=== PATIENT | female | born 1980 | race Caucasian/White ===

== ENCOUNTER 2017-08-19 09:03 | Observation (INO) ==
[2017-08-19] MEDS ORDERED: SODIUM CHLORIDE 0.9% 1,000 ML IV STA (09:36)
[2017-08-19] MEDS ORDERED: ONDANSETRON 4 MG/2 ML VIAL IV STA ×2 (09:36→12:40)
[2017-08-19] MEDS ORDERED: HYDROmorphone 2 MG/1 ML VIAL IV STA ×2 (09:36→11:40)
[2017-08-19] MEDS ORDERED: KETOROLAC 30 MG/1 ML VIAL IV STA (09:36)
[2017-08-19] MEDS ORDERED: KETOROLAC 30 MG/1 ML VIAL ONE (09:45)
[2017-08-19] MEDS ORDERED: ONDANSETRON 4 MG/2 ML VIAL ONE ×2 (09:45→12:40)
[2017-08-19] MEDS ORDERED: HYDROmorphone 2 MG/1 ML VIAL ONE (09:45)
[2017-08-19 09:55] LABS: Apearance,Urine CLEAR (Clear); Bacteria,Urine Occasional /HPF (Few); Bilirubin,Urine Negative (Negative); Blood, Urine Small mg/dL (Negative); Calcium Oxalate Crystals,Urine Occasional /HPF (Few); Glucose,Urine (UA) Negative (Negative); Ketones,Urine Negative (Negative); Mucus,Urine Many /LPF (Occasional); Nitrite,Urine Positive (Negative); Protein,Urine 30 MG/DL; RBC,Urine 33 /HPF (0-4); Squamous Epithelial Cell,Urine Occasional /HPF (0-10); Urine Color Amber (Yellow); Urine Specific Gravity 1.024 (1.001-1.035); WBC,Urine 10 /HPF (0-6)
[2017-08-19] MEDS ORDERED: cefTRIAXone 1,000 MG in SODIUM CHLORIDE 0.9% 100 ML IV STA (11:49)
[2017-08-19 12:32] LABS: Alanine Aminotransferase 18 U/L (13-56); Albumin 3.8 G/DL (3.4-5.0); Alkaline Phosphatase 59 U/L (45-117); Aspartate Amino Transferase 12 U/L (0-37); Bilirubin,Total < 0.39 MG/DL (0.2-1.0); Blood Urea Nitrogen 15 MG/DL (7-18); Calcium 8.5 MG/DL (8.5-10.1); Glucose 98 MG/DL (74-106); Osmolality,Calculated 279.4 MOS/KG (273-304); Potassium 3.9 MMOL/L (3.5-5.1); Sodium 140 MMOL/L (136-145); Total Protein 6.6 G/DL (6.4-8.3)
[2017-08-19] MEDS ORDERED: cefTRIAXone 1,000 MG VIAL ONE (12:33)
[2017-08-19 12:40] LABS: Basophils # 0.1 10*3/uL (0.0-0.2); Basophils % 0.5 % (0.0-0.8); Eosinophils # 0.1 10*3/uL (0.0-0.87); Eosinophils % 0.9 % (0.00-10.9); Hematocrit 38.3 VOL% (35.7-47.0); Hemoglobin 12.9 GM/DL (12.0-16.0); Immature Granulocytes % 0.4 %; Immature Granulocytes Absolute 0.05 #; Lymphocytes # 1.6 10*3/uL (1.4-4.0); Mean Corpuscular HGB Conc 33.7 GM/DL (32-36); Mean Corpuscular Hemoglobin 32 PG (27-34); Mean Corpuscular Volume 93.9 FL (87-102); Mean Platelet Volume 10.8 FL (9.6-12.0); Monocytes % 7.8 % (1.7-12.7); Neutrophils # 9.6 10*3/uL (1.4-7.4); Neutrophils % 77.4 % (38.7-73.9); Platelet Count 287 T/CUMM (130-400); Red Blood Count 4.08 MC/CUMM (3.8-5.5); Red Cell Distribution Width 12.8 % (9.3-17.3); White Blood Count 12.3 T/CUMM (4-12)
[2017-08-19] MEDS ORDERED: ALBUTEROL 2.5 MG/3 ML NEB RESP TX PRN (16:10)
[2017-08-19] MEDS ORDERED: cefTRIAXone 1,000 MG in SYRINGE 1 EACH IV ONE (16:10)
[2017-08-19] MEDS ORDERED: ONDANSETRON 4 MG/2 ML VIAL IV PRN (16:10)
[2017-08-19] MEDS ORDERED: diphenhydrAMINE 50 MG/1 ML VIAL IV PRN (16:10)
[2017-08-19] MEDS: DEXTROSE 5% NACL 0.45% 1,000 ML IV SCH (17:00)
[2017-08-19] MEDS: FAMOTIDINE IV SCH (17:02)
[2017-08-19] MEDS: TAMSULOSIN 0.4 MG CAPSULE PO SCH (17:02)
[2017-08-19] MEDS: HYDROmorphone 2 MG/1 ML VIAL IV PRN ×2 (17:29→22:34)
[2017-08-19] MEDS: KETOROLAC 15 MG/1 ML VIAL IV SCH (19:12)
[2017-08-19] MEDS: PROMETHAZINE 25 MG/1 ML VIAL IM PRN (22:30)
[2017-08-20] MEDS: DEXTROSE 5% NACL 0.45% 1,000 ML IV SCH ×2 (01:36→10:46)
[2017-08-20] MEDS: HYDROmorphone 2 MG/1 ML VIAL IV PRN ×3 (01:36→10:46)
[2017-08-20] MEDS: KETOROLAC 15 MG/1 ML VIAL IV SCH (01:36)
[2017-08-20 07:25] LABS: Basophils % 0.5 % (0.0-0.8); Eosinophils # 0.2 10*3/uL (0.0-0.87); Hematocrit 29.8 VOL% (35.7-47.0); Immature Granulocytes % 0.3 %; Immature Granulocytes Absolute 0.02 #; Lymphocytes # 2.2 10*3/uL (1.4-4.0); Lymphocytes % 33.6 % (21.3-54.2); Mean Corpuscular HGB Conc 34.2 GM/DL (32-36); Mean Corpuscular Hemoglobin 32 PG (27-34); Mean Corpuscular Volume 94.6 FL (87-102); Mean Platelet Volume 10.1 FL (9.6-12.0); Monocytes # 0.5 10*3/uL (0.11-0.8); Monocytes % 7.9 % (1.7-12.7); Neutrophils # 3.6 10*3/uL (1.4-7.4); Neutrophils % 54.7 % (38.7-73.9); Red Cell Distribution Width 12.8 % (9.3-17.3)
[2017-08-20 07:34] LABS: Hemoglobin 10.2 GM/DL (12.0-16.0); Platelet Count 202 T/CUMM (130-400); Red Blood Count 3.15 MC/CUMM (3.8-5.5); White Blood Count 6.6 T/CUMM (4-12)
[2017-08-20 07:38] LABS: Osmolality,Calculated 278.3 MOS/KG (273-304); Potassium 3.9 MMOL/L (3.5-5.1)
[2017-08-20] MEDS: TAMSULOSIN 0.4 MG CAPSULE PO SCH (10:34)
[2017-08-20] MEDS: FAMOTIDINE IV SCH ×2 (10:35→22:00)
[2017-08-20] MEDS: PROMETHAZINE 25 MG/1 ML VIAL IM PRN ×2 (10:35→22:24)
[2017-08-20] MEDS ORDERED: cefTRIAXone 1,000 MG VIAL ONE (13:39)
[2017-08-20] MEDS ORDERED: cefTRIAXone 1,000 MG in SYRINGE 1 EACH IV ONE (14:00)
[2017-08-20] MEDS ORDERED: PROPOFOL 200 MG/20 ML VIAL IV ONE (14:38)
[2017-08-20] MEDS ORDERED: ROCURONIUM 100 MG/10 ML VIAL IV ONE (14:38)
[2017-08-20] MEDS ORDERED: MIDAZOLAM 2 MG/2 ML VIAL ONE (14:38)
[2017-08-20] MEDS ORDERED: fentaNYL 100 MCG/2 ML VIAL ONE (14:38)
[2017-08-20] MEDS ORDERED: ePHEDrine 50 MG/ML AMP ONE (14:39)
[2017-08-20] MEDS ORDERED: ONDANSETRON 4 MG/2 ML VIAL ONE (14:39)
[2017-08-20] MEDS ORDERED: DEXAMETHASONE 4 MG/1 ML VIAL ONE (14:39)
[2017-08-20] MEDS ORDERED: PROMETHAZINE 25 MG/1 ML VIAL ONE (14:39)
[2017-08-20] MEDS ORDERED: PHENYLEPHRINE 50 MG/5 ML VIAL ONE (14:40)
[2017-08-20] MEDS ORDERED: SODIUM CHLORIDE 0.9% 250 ML IV ONE (14:40)
[2017-08-20] MEDS ORDERED: GLYCOPYRROLATE 0.4 MG/2 ML VIAL ONE (14:40)
[2017-08-20] MEDS: MORPHINE 2 MG/1 ML SYRINGE IV PRN ×2 (17:53→22:24)
[2017-08-20] MEDS: LACTATED RINGERS 1,000 ML IV SCH (17:57)
[2017-08-21] MEDS: LACTATED RINGERS 1,000 ML IV SCH (02:21)
[2017-08-21] MEDS ORDERED: KETOROLAC 30 MG/1 ML VIAL IV ONE (08:00)
[2017-08-21] MEDS ORDERED: LISDEXAMFETAMINE DIMESYLATE 70 MG PO SCH (09:00)
[2017-08-21] MEDS: TAMSULOSIN 0.4 MG CAPSULE PO SCH (09:21)
[2017-08-21] MEDS: FAMOTIDINE IV SCH (09:21)
[2017-08-21] MEDS: PROMETHAZINE 25 MG/1 ML VIAL IM PRN (09:34)
[2017-08-21] MEDS: MORPHINE 2 MG/1 ML SYRINGE IV PRN (10:43)
[2017-08-21 12:06] VITALS: BP 99/54
[2017-08-21] MEDS ORDERED: ZALEPLON 5 MG CAPSULE PO SCH (21:00)
[2017-08-21] MEDS ORDERED: NORETHINDRONE 0.35 MG PO SCH (21:00)
[2017-08-21] MEDS ORDERED: MONTELUKAST 10 MG TABLET PO SCH (21:00)
[2017-08-26 22:04] LABS: Stone Source Passed Stone
== END 2017-08-21 12:51 | disposition home or self-care (01) ==
LOC: N.EDINP 09:03 → N.ED 09:03 → N.2E 16:00
PROVIDERS: ADMIT Surgery; ATTEND Surgery

== ENCOUNTER 2017-11-19 11:51 | Observation (INO) ==
[2017-11-19] MEDS ORDERED: ONDANSETRON 4 MG/2 ML VIAL ONE (12:13)
[2017-11-19] MEDS ORDERED: KETOROLAC 30 MG/1 ML VIAL ONE (12:14)
[2017-11-19] MEDS ORDERED: HYDROmorphone 2 MG/1 ML VIAL ONE ×2 (12:14→16:04)
[2017-11-19] MEDS ORDERED: SODIUM CHLORIDE 0.9% 1,000 ML IV STA ×2 (12:20→16:18)
[2017-11-19] MEDS ORDERED: ONDANSETRON 4 MG/2 ML VIAL IV STA (12:20)
[2017-11-19] MEDS ORDERED: KETOROLAC 30 MG/1 ML VIAL IV STA (12:20)
[2017-11-19] MEDS ORDERED: HYDROmorphone 2 MG/1 ML VIAL IV STA ×2 (12:20→16:35)
[2017-11-19 13:47] LABS: Apearance,Urine CLOUDY (Clear); Bacteria,Urine Many /HPF (Few); Bilirubin,Urine Negative (Negative); Blood, Urine Large mg/dL (Negative); Glucose,Urine (UA) Negative (Negative); Ketones,Urine 20 mg/dL (Negative); Nitrite,Urine Positive (Negative); Protein,Urine 100 MG/DL; RBC,Urine 1934 /HPF (0-4); Squamous Epithelial Cell,Urine Occasional /HPF (0-10); Transitional Epi Cells,Urine Few /HPF (<1); Urine Color Amber (Yellow); Urine Specific Gravity 1.024 (1.001-1.035); Urine Urobilinogen < 2.0 EU/DL (0.2-1.0); WBC,Urine 129 /HPF (0-6)
[2017-11-19] MEDS ORDERED: cefTRIAXone 1,000 MG in SODIUM CHLORIDE 0.9% 100 ML IV STA (15:18)
[2017-11-19] MEDS ORDERED: cefTRIAXone 1,000 MG VIAL ONE (15:59)
[2017-11-19 16:44] LABS: Basophils % 0.2 % (0.0-0.8); Eosinophils # 0.1 10*3/uL (0.0-0.87); Eosinophils % 0.6 % (0.00-10.9); Hematocrit 36.9 VOL% (35.7-47.0); Hemoglobin 12.5 GM/DL (12.0-16.0); Immature Granulocytes % 0.5 %; Immature Granulocytes Absolute 0.06 #; Lymphocytes # 1.2 10*3/uL (1.4-4.0); Lymphocytes % 9.5 % (21.3-54.2); Mean Corpuscular HGB Conc 33.9 GM/DL (32-36); Mean Corpuscular Hemoglobin 32 PG (27-34); Mean Corpuscular Volume 94.4 FL (87-102); Mean Platelet Volume 10.7 FL (9.6-12.0); Monocytes # 0.7 10*3/uL (0.11-0.8); Monocytes % 5.7 % (1.7-12.7); Neutrophils # 10.3 10*3/uL (1.4-7.4); Neutrophils % 83.5 % (38.7-73.9); Platelet Count 310 T/CUMM (130-400); Red Blood Count 3.91 MC/CUMM (3.8-5.5); Red Cell Distribution Width 13.4 % (9.3-17.3); White Blood Count 12.4 T/CUMM (4-12)
[2017-11-19 16:54] LABS: Alanine Aminotransferase 19 U/L (13-56); Albumin 3.7 G/DL (3.4-5.0); Alkaline Phosphatase 67 U/L (45-117); Aspartate Amino Transferase 18 U/L (0-37); Bilirubin,Total < 0.39 MG/DL (0.2-1.0); Blood Urea Nitrogen 21 MG/DL (7-18); Calcium 8.9 MG/DL (8.5-10.1); Glucose 106 MG/DL (74-106); Osmolality,Calculated 281.4 MOS/KG (273-304); Potassium 4.3 MMOL/L (3.5-5.1); Sodium 140 MMOL/L (136-145); Total Protein 6.7 G/DL (6.4-8.3)
[2017-11-19] MEDS ORDERED: ALBUTEROL 1.25 MG/3 ML NEB RESP TX PRN (17:14)
[2017-11-19] MEDS ORDERED: MORPHINE 2 MG/1 ML SYRINGE IV PRN (17:14)
[2017-11-19] MEDS: PROMETHAZINE 25 MG/1 ML VIAL IM PRN (18:20)
[2017-11-19] MEDS: SODIUM CHLORIDE 0.9% 1,000 ML IV SCH (18:29)
[2017-11-19] MEDS: cefTRIAXone 1,000 MG in SYRINGE 1 EACH IV SCH (19:02)
[2017-11-19] MEDS ORDERED: HYDROmorphone 2 MG/1 ML VIAL IV PRN (20:53)
[2017-11-19] MEDS ORDERED: NORETHINDRONE 0.35 MG PO SCH (21:00)
[2017-11-19] MEDS: HYDROmorphone 2 MG/1 ML VIAL IV PRN (21:03)
[2017-11-19] MEDS: DOCUSATE SODIUM 100 MG CAPSULE PO SCH (21:05)
[2017-11-19] MEDS: TAMSULOSIN 0.4 MG CAPSULE PO SCH (21:05)
[2017-11-19] MEDS: MONTELUKAST 10 MG TABLET PO SCH (21:05)
[2017-11-19] MEDS: ONDANSETRON 4 MG/2 ML VIAL IV PRN (21:07)
[2017-11-20] MEDS: PROMETHAZINE 25 MG/1 ML VIAL IM PRN ×3 (00:10→13:08)
[2017-11-20] MEDS: HYDROmorphone 2 MG/1 ML VIAL IV PRN ×7 (00:11→21:17)
[2017-11-20] MEDS: SODIUM CHLORIDE 0.9% 1,000 ML IV SCH ×4 (00:19→23:29)
[2017-11-20] MEDS: ONDANSETRON 4 MG/2 ML VIAL IV PRN (03:52)
[2017-11-20] MEDS ORDERED: DIAZEPAM 5 MG TABLET PO ONE (07:25)
[2017-11-20] MEDS ORDERED: LIDOCAINE 2% TOP JELLY 20 ML VIAL INTRAURETH ONE (08:18)
[2017-11-20] MEDS ORDERED: Lisdexamfetamine Dimesylate [Vyvanse] 70 MG PO SCH (09:00)
[2017-11-20] MEDS ORDERED: SCOPOLAMINE 1.5 MG PATCH TRANSDERM ONE (09:13)
[2017-11-20] MEDS ORDERED: GENTAMICIN 80 MG/2 ML VIAL ONE (09:48)
[2017-11-20] MEDS ORDERED: fentaNYL 100 MCG/2 ML VIAL ONE (10:15)
[2017-11-20] MEDS ORDERED: MIDAZOLAM 2 MG/2 ML VIAL ONE (10:15)
[2017-11-20] MEDS ORDERED: PROPOFOL 200 MG/20 ML VIAL IV ONE (10:15)
[2017-11-20] MEDS ORDERED: SEVOFLURANE 1 UNIT/15 MINUTE INH ONE (10:15)
[2017-11-20] MEDS ORDERED: DEXAMETHASONE 10 MG/1 ML VIAL ONE (10:16)
[2017-11-20] MEDS ORDERED: ONDANSETRON 4 MG/2 ML VIAL ONE (10:16)
[2017-11-20] MEDS ORDERED: ACETAMINOPHEN 1,000 MG/100 ML VIAL IV ONE (10:16)
[2017-11-20] MEDS ORDERED: SUCCINYLCHOLINE 200 MG/10 ML VIAL ONE (10:16)
[2017-11-20] MEDS ORDERED: ePHEDrine 50 MG/ML AMP ONE (10:16)
[2017-11-20] MEDS ORDERED: GENTAMICIN INJ 80 MG in PREMIX 1 EACH IV ONE (10:30)
[2017-11-20] MEDS: DOCUSATE SODIUM 100 MG CAPSULE PO SCH ×2 (11:34→21:08)
[2017-11-20] MEDS: TAMSULOSIN 0.4 MG CAPSULE PO SCH ×2 (11:34→21:14)
[2017-11-20] MEDS: FAMOTIDINE 20 MG TABLET PO SCH (11:34)
[2017-11-20] MEDS: cefTRIAXone 1,000 MG in SYRINGE 1 EACH IV SCH (18:02)
[2017-11-20] MEDS: MONTELUKAST 10 MG TABLET PO SCH (21:08)
[2017-11-20] MEDS: oxyCODONE/ACETAMINOPHEN 5-325 MG TABLET PO PRN (23:27)
[2017-11-21] MEDS: HYDROmorphone 2 MG/1 ML VIAL IV PRN ×3 (00:02→08:07)
[2017-11-21] MEDS: PROMETHAZINE 25 MG/1 ML VIAL IM PRN ×2 (03:56→09:50)
[2017-11-21] MEDS: oxyCODONE/ACETAMINOPHEN 5-325 MG TABLET PO PRN ×2 (04:04→09:42)
[2017-11-21] MEDS: SODIUM CHLORIDE 0.9% 1,000 ML IV SCH ×2 (06:22→10:11)
[2017-11-21] MEDS: DOCUSATE SODIUM 100 MG CAPSULE PO SCH (08:10)
[2017-11-21] MEDS: TAMSULOSIN 0.4 MG CAPSULE PO SCH (08:10)
[2017-11-21] MEDS: FAMOTIDINE 20 MG TABLET PO SCH (08:10)
[2017-11-21 14:46] VITALS: BP 98/56
== END 2017-11-21 12:35 | disposition home or self-care (01) ==
LOC: N.EDINP 11:51 → N.ED 11:51 → N.EDINP 16:45 → N.4E 17:13
PROVIDERS: ADMIT Surgery; ATTEND Surgery

== ENCOUNTER 2018-04-06 10:10 | Inpatient (IN) ==
[2018-04-08 11:08] VITALS: BP 134/81
== END 2018-04-08 15:15 | disposition home or self-care (01) | DRG 694 ==
LOC: N.EDINP 10:10 → N.ED 10:10 → N.5E 13:51
PROVIDERS: ADMIT Surgery; ATTEND Surgery

== ENCOUNTER 2018-08-29 12:45 | Inpatient (IN) ==
[2018-08-29 13:52] LABS: Lactic Acid 2.3 MMOL/L (0.4-2.0)
[2018-08-29] MEDS ORDERED: ACETAMINOPHEN 500 MG TABLET PO STA (14:41)
[2018-08-29] MEDS ORDERED: SODIUM CHLORIDE 0.9% 500 ML IV STA (14:47)
[2018-08-29] MEDS ORDERED: PIPERACILLIN/TAZOBACTAM 3,375 MG in SODIUM CHLORIDE 0.9% 100 ML IV STA (14:48)
[2018-08-29] MEDS ORDERED: ACETAMINOPHEN 500 MG TABLET ONE (14:48)
[2018-08-29] MEDS ORDERED: ONDANSETRON 4 MG/2 ML VIAL IV STA (14:49)
[2018-08-29] MEDS ORDERED: HYDROmorphone 2 MG/1 ML VIAL IV STA (14:52)
[2018-08-29] MEDS ORDERED: ONDANSETRON 4 MG/2 ML VIAL ONE (14:55)
[2018-08-29] MEDS ORDERED: HYDROmorphone 2 MG/1 ML VIAL ONE ×2 (14:55→18:25)
[2018-08-29 15:01] LABS: Basophils % 0.2 % (0.0-0.8); Eosinophils # 0.2 10*3/uL (0.0-0.87); Eosinophils % 1.7 % (0.00-10.9); Hemoglobin 12.2 GM/DL (12.0-16.0); Immature Granulocytes % 0.7 %; Immature Granulocytes Absolute 0.09 #; Lymphocytes # 0.6 10*3/uL (1.4-4.0); Lymphocytes % 4.6 % (21.3-54.2); Mean Corpuscular HGB Conc 33.9 GM/DL (32-36); Mean Corpuscular Hemoglobin 32 PG (27-34); Mean Corpuscular Volume 94.7 FL (87-102); Mean Platelet Volume 10.6 FL (9.6-12.0); Monocytes # 0.6 10*3/uL (0.11-0.8); Monocytes % 4.4 % (1.7-12.7); Neutrophils # 10.9 10*3/uL (1.4-7.4); Neutrophils % 88.4 % (38.7-73.9); Platelet Count 210 T/CUMM (130-400); Red Cell Distribution Width 12.9 % (9.3-17.3); White Blood Count 12.4 T/CUMM (4-12)
[2018-08-29 15:05] LABS: Apearance,Urine CLOUDY (Clear); Bacteria,Urine Occasional /HPF (Few); Bilirubin,Urine Negative (Negative); Blood, Urine Moderate mg/dL (Negative); Glucose,Urine (UA) Negative (Negative); Ketones,Urine Negative (Negative); Mucus,Urine Occasional /LPF (Occasional); Nitrite,Urine Negative (Negative); Protein,Urine 100 MG/DL; RBC,Urine 66 /HPF (0-4); Squamous Epithelial Cell,Urine Few /HPF (0-10); Urine Color Yellow (Yellow); Urine Specific Gravity 1.016 (1.001-1.035); Urine Urobilinogen < 2.0 EU/DL (0.2-1.0); WBC,Urine 130 /HPF (0-6)
[2018-08-29 15:28] LABS: Alanine Aminotransferase 26 U/L (13-56); Alkaline Phosphatase 101 U/L (45-117); Aspartate Amino Transferase 21 U/L (0-37); Bilirubin,Total < 0.39 MG/DL (0.2-1.0); Blood Urea Nitrogen 24 MG/DL (7-18); Calcium 9.1 MG/DL (8.5-10.1); Glucose 99 MG/DL (74-106); Osmolality,Calculated 273.1 MOS/KG (273-304); Sodium 135 MMOL/L (136-145); Total Protein 7.2 G/DL (6.4-8.3)
[2018-08-29] MEDS ORDERED: ACETAMINOPHEN 325 MG TABLET PO PRN (17:18)
[2018-08-29] MEDS ORDERED: SODIUM CHLORIDE 0.9% 1,000 ML IV ONE (17:23)
[2018-08-29] MEDS ORDERED: LACTATED RINGERS 1,000 ML IV SCH (17:30)
[2018-08-29] MEDS ORDERED: POTASSIUM CHLORIDE 20 MEQ/15 ML UDCUP PER TUBE PRN (17:56)
[2018-08-29] MEDS ORDERED: HYDROmorphone 2 MG/1 ML VIAL IV PRN (17:58)
[2018-08-29 19:02] LABS: Lactic Acid 2.3 MMOL/L (0.4-2.0)
[2018-08-29] MEDS: ONDANSETRON 4 MG/2 ML VIAL IV PRN (19:20)
[2018-08-29] MEDS: SODIUM CHLORIDE 0.9% 1,000 ML IV SCH (19:20)
[2018-08-29] MEDS: POTASSIUM CHLORIDE RIDER 10 MEQ in PREMIX 1 EACH IV PRN ×2 (19:24→23:17)
[2018-08-29] MEDS ORDERED: INFLUENZA VIRUS VACCINE 0.5 ML SYRINGE IM ONE (19:30)
[2018-08-29] MEDS: DOCUSATE SODIUM 100 MG CAPSULE PO PRN (19:34)
[2018-08-29] MEDS: HYDROmorphone 2 MG/1 ML VIAL IV PRN (22:29)
[2018-08-30] MEDS: POTASSIUM CHLORIDE RIDER 10 MEQ in PREMIX 1 EACH IV PRN ×3 (00:36→02:45)
[2018-08-30] MEDS: PIPERACILLIN/TAZOBACTAM 3,375 MG in SODIUM CHLORIDE 0.9% 100 ML IV SCH ×2 (00:36→10:45)
[2018-08-30] MEDS: ONDANSETRON 4 MG/2 ML VIAL IV PRN ×2 (02:51→06:39)
[2018-08-30] MEDS: HYDROmorphone 2 MG/1 ML VIAL IV PRN ×4 (02:51→23:30)
[2018-08-30 05:42] LABS: Basophils % 0.3 % (0.0-0.8); Eosinophils # 0.2 10*3/uL (0.0-0.87); Eosinophils % 3.9 % (0.00-10.9); Hematocrit 31.7 VOL% (35.7-47.0); Hemoglobin 10.5 GM/DL (12.0-16.0); Immature Granulocytes % 0.8 %; Immature Granulocytes Absolute 0.05 #; Lymphocytes # 0.6 10*3/uL (1.4-4.0); Mean Corpuscular HGB Conc 33.1 GM/DL (32-36); Mean Corpuscular Hemoglobin 31 PG (27-34); Mean Corpuscular Volume 94.1 FL (87-102); Mean Platelet Volume 10.5 FL (9.6-12.0); Monocytes # 0.5 10*3/uL (0.11-0.8); Monocytes % 8.9 % (1.7-12.7); Neutrophils # 4.6 10*3/uL (1.4-7.4); Neutrophils % 76.1 % (38.7-73.9); Platelet Count 158 T/CUMM (130-400); Red Blood Count 3.37 MC/CUMM (3.8-5.5); Red Cell Distribution Width 12.9 % (9.3-17.3); White Blood Count 6.1 T/CUMM (4-12)
[2018-08-30 06:05] LABS: Hypochromasia Slight; Microcytosis Slight; Platelet Estimate Adequate
[2018-08-30 06:31] LABS: Alanine Aminotransferase 35 U/L (13-56); Albumin 2.1 G/DL (3.4-5.0); Alkaline Phosphatase 83 U/L (45-117); Aspartate Amino Transferase 29 U/L (0-37); Bilirubin,Total < 0.39 MG/DL (0.2-1.0); Blood Urea Nitrogen 16 MG/DL (7-18); Calcium 7.7 MG/DL (8.5-10.1); Cholesterol 111 MG/DL (50-200); Glucose 112 MG/DL (74-106); HDL Cholesterol < 10 MG/DL (40-60); Osmolality,Calculated 274.8 MOS/KG (273-304); Potassium 3.3 MMOL/L (3.5-5.1); Sodium 137 MMOL/L (136-145); Thyroid Stimulating Hormone 0.986 uIU/ml (0.358-3.74); Total Protein 5.6 G/DL (6.4-8.3); Triglycerides 337 MG/DL (2-150); VLDL CHOLESTEROL 67.4 MG/DL
[2018-08-30] MEDS ORDERED: SODIUM CHLORIDE 0.9% 1,000 ML IV ONE (07:32)
[2018-08-30] MEDS ORDERED: oxyCODONE/ACETAMINOPHEN 5-325 MG TABLET PO PRN (08:30)
[2018-08-30] MEDS: HYDROmorphone 2 MG/1 ML VIAL IV SCH ×2 (09:43→10:26)
[2018-08-30] MEDS: PANTOPRAZOLE 40 MG TABLET PO SCH (09:44)
[2018-08-30] MEDS: SODIUM CHLORIDE 0.9% 1,000 ML IV SCH ×3 (10:27→23:00)
[2018-08-30] MEDS ORDERED: TAMSULOSIN 0.4 MG CAPSULE PO PRN (11:18)
[2018-08-30] MEDS ORDERED: ALBUTEROL 2.5 MG/3 ML NEB RESP TX PRN (11:18)
[2018-08-30] MEDS ORDERED: OXYBUTYNIN 5 MG TABLET PO PRN (11:18)
[2018-08-30] MEDS ORDERED: ZALEPLON 5 MG CAPSULE PO PRN (12:30)
[2018-08-30] MEDS ORDERED: cefTRIAXone 1,000 MG in SYRINGE 1 EACH IV SCH (13:00)
[2018-08-30] MEDS ORDERED: cefTRIAXone 1,000 MG VIAL ONE (13:53)
[2018-08-30] MEDS ORDERED: PROPOFOL 200 MG/20 ML VIAL IV ONE (14:25)
[2018-08-30] MEDS ORDERED: MIDAZOLAM 2 MG/2 ML VIAL ONE (14:25)
[2018-08-30] MEDS ORDERED: PHENYLEPHRINE 1 MG/10 ML SYRINGE IV ONE (14:26)
[2018-08-30] MEDS ORDERED: DEXAMETHASONE 10 MG/1 ML VIAL ONE (14:26)
[2018-08-30] MEDS ORDERED: ONDANSETRON 4 MG/2 ML VIAL ONE (14:26)
[2018-08-30] MEDS ORDERED: fentaNYL 100 MCG/2 ML VIAL ONE (14:26)
[2018-08-30] MEDS: KETOROLAC 10 MG TABLET PO SCH ×2 (15:09→20:29)
[2018-08-30] MEDS: oxyCODONE/ACETAMINOPHEN 5-325 MG TABLET PO PRN (17:38)
[2018-08-30] MEDS: LACTULOSE 20 GM/30 ML UDCUP PO PRN ×2 (17:45→23:23)
[2018-08-30] MEDS: MONTELUKAST 10 MG TABLET PO SCH (20:29)
[2018-08-30] MEDS: POTASSIUM CHLORIDE 10 MEQ TABLET PO SCH (20:30)
[2018-08-30] MEDS ORDERED: Norethindrone PO SCH (21:00)
[2018-08-31] MEDS: oxyCODONE/ACETAMINOPHEN 5-325 MG TABLET PO PRN ×2 (01:36→08:50)
[2018-08-31] MEDS: HYDROmorphone 2 MG/1 ML VIAL IV PRN ×5 (02:46→22:08)
[2018-08-31] MEDS: DOCUSATE SODIUM 100 MG CAPSULE PO PRN ×2 (02:49→14:42)
[2018-08-31] MEDS: SODIUM CHLORIDE 0.9% 1,000 ML IV SCH ×3 (05:16→19:06)
[2018-08-31 07:14] LABS: Basophils % 0.2 % (0.0-0.8); Hematocrit 29.7 VOL% (35.7-47.0); Hemoglobin 9.5 GM/DL (12.0-16.0); Immature Granulocytes % 0.3 %; Immature Granulocytes Absolute 0.02 #; Lymphocytes # 0.4 10*3/uL (1.4-4.0); Lymphocytes % 6.4 % (21.3-54.2); Mean Corpuscular Hemoglobin 31 PG (27-34); Mean Corpuscular Volume 97.4 FL (87-102); Mean Platelet Volume 10.8 FL (9.6-12.0); Monocytes # 0.4 10*3/uL (0.11-0.8); Monocytes % 5.8 % (1.7-12.7); Neutrophils # 5.4 10*3/uL (1.4-7.4); Neutrophils % 87.3 % (38.7-73.9); Platelet Count 159 T/CUMM (130-400); Red Blood Count 3.05 MC/CUMM (3.8-5.5); Red Cell Distribution Width 13.3 % (9.3-17.3); White Blood Count 6.2 T/CUMM (4-12)
[2018-08-31 07:38] LABS: Calcium 7.9 MG/DL (8.5-10.1); Osmolality,Calculated 286.1 MOS/KG (273-304); Potassium 3.8 MMOL/L (3.5-5.1)
[2018-08-31 07:45] LABS: Band Neutrophils 29 % (0-10); Lymphocytes 4 % (20-55); Nucleated Red Blood Cells 1 (0-5); Platelet Estimate Adequate; Segmented Neutrophils 64 % (50-85); Total Cells Counted 100
[2018-08-31 07:46] LABS: Anisocytosis 1+
[2018-08-31] MEDS: POTASSIUM CHLORIDE 10 MEQ TABLET PO SCH ×2 (08:50→21:51)
[2018-08-31] MEDS: hydroCHLOROthiazide 12.5 MG CAPSULE PO SCH ×2 (08:50→08:55)
[2018-08-31] MEDS: KETOROLAC 10 MG TABLET PO SCH ×3 (08:50→21:51)
[2018-08-31] MEDS: PANTOPRAZOLE 40 MG TABLET PO SCH (08:51)
[2018-08-31] MEDS ORDERED: VYVANSE PO SCH (09:00)
[2018-08-31] MEDS: cefTRIAXone 2,000 MG in SYRINGE 1 EACH IV SCH (10:08)
[2018-08-31] MEDS: ONDANSETRON 4 MG/2 ML VIAL IV PRN ×2 (14:42→22:13)
[2018-08-31] MEDS: MONTELUKAST 10 MG TABLET PO SCH (21:51)
[2018-08-31] MEDS: LACTULOSE 20 GM/30 ML UDCUP PO PRN (22:13)
[2018-09-01] MEDS: HYDROmorphone 2 MG/1 ML VIAL IV PRN ×6 (03:38→21:15)
[2018-09-01] MEDS: ONDANSETRON 4 MG/2 ML VIAL IV PRN ×2 (03:40→09:28)
[2018-09-01] MEDS: SODIUM CHLORIDE 0.9% 1,000 ML IV SCH ×4 (05:23→22:10)
[2018-09-01 05:35] LABS: Basophils % 0.3 % (0.0-0.8); Eosinophils # 0.2 10*3/uL (0.0-0.87); Eosinophils % 2.5 % (0.00-10.9); Hematocrit 27.4 VOL% (35.7-47.0); Hemoglobin 8.9 GM/DL (12.0-16.0); Immature Granulocytes % 0.8 %; Immature Granulocytes Absolute 0.05 #; Lymphocytes # 1.7 10*3/uL (1.4-4.0); Lymphocytes % 27.8 % (21.3-54.2); Mean Corpuscular HGB Conc 32.5 GM/DL (32-36); Mean Corpuscular Hemoglobin 32 PG (27-34); Mean Corpuscular Volume 97.2 FL (87-102); Mean Platelet Volume 10.9 FL (9.6-12.0); Monocytes # 0.7 10*3/uL (0.11-0.8); Monocytes % 11.4 % (1.7-12.7); Neutrophils # 3.4 10*3/uL (1.4-7.4); Neutrophils % 57.2 % (38.7-73.9); Platelet Count 181 T/CUMM (130-400); Red Blood Count 2.82 MC/CUMM (3.8-5.5); Red Cell Distribution Width 13.9 % (9.3-17.3)
[2018-09-01 05:45] LABS: Calcium 7.1 MG/DL (8.5-10.1); Osmolality,Calculated 283.8 MOS/KG (273-304); Potassium 3.6 MMOL/L (3.5-5.1)
[2018-09-01] MEDS: hydroCHLOROthiazide 12.5 MG CAPSULE PO SCH (08:00)
[2018-09-01] MEDS: DOCUSATE SODIUM 100 MG CAPSULE PO PRN ×2 (08:01→22:24)
[2018-09-01] MEDS: POTASSIUM CHLORIDE 10 MEQ TABLET PO SCH ×2 (08:01→21:13)
[2018-09-01] MEDS: PANTOPRAZOLE 40 MG TABLET PO SCH (08:01)
[2018-09-01] MEDS: cefTRIAXone 2,000 MG in SYRINGE 1 EACH IV SCH (08:05)
[2018-09-01] MEDS: KETOROLAC 10 MG TABLET PO SCH ×3 (08:06→21:13)
[2018-09-01] MEDS: FLUCONAZOLE 200 MG TABLET PO SCH (13:52)
[2018-09-01] MEDS: diphenhydrAMINE 50 MG/1 ML VIAL IV PRN ×2 (16:20→22:21)
[2018-09-01] MEDS: MONTELUKAST 10 MG TABLET PO SCH (21:13)
[2018-09-02] MEDS: HYDROmorphone 2 MG/1 ML VIAL IV PRN ×3 (00:16→08:14)
[2018-09-02 05:30] LABS: Calcium 8.2 MG/DL (8.5-10.1); Osmolality,Calculated 280.1 MOS/KG (273-304); Potassium 3.6 MMOL/L (3.5-5.1)
[2018-09-02] MEDS: diphenhydrAMINE 50 MG/1 ML VIAL IV PRN (06:48)
[2018-09-02] MEDS: POTASSIUM CHLORIDE 10 MEQ TABLET PO SCH (08:13)
[2018-09-02] MEDS: FLUCONAZOLE 200 MG TABLET PO SCH (08:13)
[2018-09-02] MEDS: LACTULOSE 20 GM/30 ML UDCUP PO PRN (08:13)
[2018-09-02] MEDS: hydroCHLOROthiazide 12.5 MG CAPSULE PO SCH (08:13)
[2018-09-02] MEDS: PANTOPRAZOLE 40 MG TABLET PO SCH (08:13)
[2018-09-02] MEDS: cefTRIAXone 2,000 MG in SYRINGE 1 EACH IV SCH (08:14)
[2018-09-02] MEDS: KETOROLAC 10 MG TABLET PO SCH (09:01)
[2018-09-02] MEDS: SODIUM CHLORIDE 0.9% 1,000 ML IV SCH (10:42)
[2018-09-02 11:35] VITALS: BP 125/80
[2018-09-03] MEDS ORDERED: LEVOFLOXACIN 750 MG TABLET PO SCH (09:00)
== END 2018-09-02 15:20 | disposition home or self-care (01) | DRG 660 ==
LOC: SUATTDRO → N.ED 12:45 → N.EDINP 17:18 → N.2E 19:00
PROVIDERS: ADMIT Internal Medicine; ATTEND Internal Medicine

== ENCOUNTER 2018-12-04 17:48 | Inpatient (IN) ==
[2018-12-04 18:23] LABS: Apearance,Urine CLEAR (Clear); Bacteria,Urine Occasional /HPF (Few); Bilirubin,Urine Negative (Negative); Blood, Urine Negative (Negative); Glucose,Urine (UA) Negative (Negative); Ketones,Urine Negative (Negative); Mucus,Urine Occasional /LPF (Occasional); Nitrite,Urine Negative (Negative); Protein,Urine Negative; RBC,Urine 1 /HPF (0-4); Squamous Epithelial Cell,Urine Occasional /HPF (0-10); Urine Color Yellow (Yellow); Urine Specific Gravity 1.013 (1.001-1.035); Urine Urobilinogen < 2.0 EU/DL (0.2-1.0); WBC,Urine 1 /HPF (0-6)
[2018-12-04] MEDS ORDERED: ONDANSETRON 4 MG/2 ML VIAL IV STA (19:02)
[2018-12-04] MEDS ORDERED: SODIUM CHLORIDE 0.9% 1,000 ML IV STA (19:02)
[2018-12-04] MEDS ORDERED: LEVOFLOXACIN INJ 750 MG in PREMIX 1 EACH IV STA (19:02)
[2018-12-04] MEDS ORDERED: METOCLOPRAMIDE 10 MG/2 ML VIAL IV STA (19:02)
[2018-12-04] MEDS ORDERED: fentaNYL 100 MCG/2 ML VIAL IV STA (19:10)
[2018-12-04 19:32] LABS: Basophils % 0.4 % (0.0-0.8); Eosinophils # 0.2 10*3/uL (0.0-0.87); Eosinophils % 1.5 % (0.00-10.9); Hematocrit 35.6 VOL% (35.7-47.0); Hemoglobin 11.4 GM/DL (12.0-16.0); Immature Granulocytes % 0.6 %; Immature Granulocytes Absolute 0.06 #; Lymphocytes # 1.9 10*3/uL (1.4-4.0); Lymphocytes % 17.6 % (21.3-54.2); Mean Corpuscular Hemoglobin 31 PG (27-34); Mean Corpuscular Volume 98.1 FL (87-102); Mean Platelet Volume 9.7 FL (9.6-12.0); Monocytes # 0.9 10*3/uL (0.11-0.8); Monocytes % 8.5 % (1.7-12.7); Neutrophils # 7.7 10*3/uL (1.4-7.4); Neutrophils % 71.4 % (38.7-73.9); Platelet Count 219 T/CUMM (130-400); Red Blood Count 3.63 MC/CUMM (3.8-5.5); White Blood Count 10.7 T/CUMM (4-12)
[2018-12-04 19:54] LABS: Alanine Aminotransferase 16 U/L (13-56); Albumin 3.4 G/DL (3.4-5.0); Alkaline Phosphatase 63 U/L (45-117); Aspartate Amino Transferase 11 U/L (0-37); Bilirubin,Total < 0.39 MG/DL (0.2-1.0); Blood Urea Nitrogen 17 MG/DL (7-18); Calcium 8.5 MG/DL (8.5-10.1); Glucose 117 MG/DL (74-106); Osmolality,Calculated 272.1 MOS/KG (273-304); Potassium 3.4 MMOL/L (3.5-5.1); Sodium 135 MMOL/L (136-145); Total Protein 6.9 G/DL (6.4-8.3)
[2018-12-04] MEDS ORDERED: HYDROmorphone 2 MG/1 ML VIAL IV STA ×2 (20:19→21:35)
[2018-12-04] MEDS ORDERED: ALBUTEROL 2.5 MG/3 ML NEB RESP TX PRN (21:26)
[2018-12-04] MEDS ORDERED: TAMSULOSIN 0.4 MG CAPSULE PO PRN (21:26)
[2018-12-04] MEDS ORDERED: ZALEPLON 5 MG CAPSULE PO PRN (21:26)
[2018-12-04] MEDS ORDERED: ONDANSETRON ODT 4 MG TABLET PO PRN (21:26)
[2018-12-04] MEDS ORDERED: POTASSIUM CHLORIDE 20 MEQ TABLET PO PRN (21:51)
[2018-12-05] MEDS: ONDANSETRON 4 MG/2 ML VIAL IV PRN ×4 (00:08→23:41)
[2018-12-05] MEDS: HYDROmorphone 2 MG/1 ML VIAL IV PRN ×7 (00:09→23:35)
[2018-12-05] MEDS: SODIUM CHLORIDE 0.9% 1,000 ML IV SCH ×3 (00:10→17:19)
[2018-12-05 04:59] LABS: Basophils % 0.5 % (0.0-0.8); Eosinophils # 0.2 10*3/uL (0.0-0.87); Eosinophils % 2.6 % (0.00-10.9); Hematocrit 32.6 VOL% (35.7-47.0); Hemoglobin 10.5 GM/DL (12.0-16.0); Immature Granulocytes % 0.6 %; Immature Granulocytes Absolute 0.05 #; Lymphocytes # 1.4 10*3/uL (1.4-4.0); Lymphocytes % 15.5 % (21.3-54.2); Mean Corpuscular HGB Conc 32.2 GM/DL (32-36); Mean Corpuscular Hemoglobin 32 PG (27-34); Mean Corpuscular Volume 98.8 FL (87-102); Mean Platelet Volume 10.1 FL (9.6-12.0); Monocytes # 0.9 10*3/uL (0.11-0.8); Monocytes % 10.6 % (1.7-12.7); Neutrophils # 6.2 10*3/uL (1.4-7.4); Neutrophils % 70.2 % (38.7-73.9); Platelet Count 207 T/CUMM (130-400); Red Cell Distribution Width 12.8 % (9.3-17.3); White Blood Count 8.8 T/CUMM (4-12)
[2018-12-05 05:31] LABS: Osmolality,Calculated 274.8 MOS/KG (273-304); Potassium 3.8 MMOL/L (3.5-5.1)
[2018-12-05] MEDS: PROMETHAZINE 25 MG TABLET PO PRN ×2 (07:57→20:17)
[2018-12-05] MEDS: POTASSIUM CHLORIDE 10 MEQ TABLET PO SCH ×2 (09:23→20:17)
[2018-12-05] MEDS: NICOTINE 14 MG/24 HR PATCH TRANSDERM SCH (09:23)
[2018-12-05] MEDS: DOCUSATE SODIUM 100 MG CAPSULE PO SCH ×2 (09:23→20:17)
[2018-12-05] MEDS: MULTIVITAMIN (PRENATAL) TABLET PO SCH (09:23)
[2018-12-05] MEDS: FLUCONAZOLE 200 MG TABLET PO SCH (09:23)
[2018-12-05] MEDS: BUDESONIDE/FORMOTEROL 160-4.5 INHALER 6 GM INH SCH ×2 (09:25→20:19)
[2018-12-05] MEDS ORDERED: PROMETHAZINE INJ 12.5 MG in SODIUM CHLORIDE 0.9% 50 ML IV ONE (14:12)
[2018-12-05] MEDS: METOCLOPRAMIDE 5 MG TABLET PO SCH (16:57)
[2018-12-05] MEDS: MONTELUKAST 10 MG TABLET PO SCH (20:17)
[2018-12-05] MEDS: LEVOFLOXACIN INJ 500 MG in PREMIX 1 EACH IV SCH (20:18)
[2018-12-05] MEDS ORDERED: NORETHINDRONE 0.35 MG PO SCH (21:00)
[2018-12-06] MEDS: SODIUM CHLORIDE 0.9% 1,000 ML IV SCH ×3 (02:19→23:17)
[2018-12-06] MEDS: HYDROmorphone 2 MG/1 ML VIAL IV PRN ×7 (02:40→23:13)
[2018-12-06] MEDS: ONDANSETRON 4 MG/2 ML VIAL IV PRN ×2 (05:50→08:58)
[2018-12-06] MEDS ORDERED: cefTRIAXone 1,000 MG in SYRINGE 1 EACH IV ONE (06:42)
[2018-12-06] MEDS ORDERED: HYDROmorphone 2 MG/1 ML VIAL IV ONE (07:32)
[2018-12-06] MEDS: METOCLOPRAMIDE 5 MG TABLET PO SCH ×3 (08:49→15:41)
[2018-12-06] MEDS ORDERED: PROMETHAZINE INJ 25 MG in SODIUM CHLORIDE 0.9% 50 ML IV ONE (10:00)
[2018-12-06] MEDS: DOCUSATE SODIUM 100 MG CAPSULE PO SCH ×2 (10:20→20:27)
[2018-12-06] MEDS: BUDESONIDE/FORMOTEROL 160-4.5 INHALER 6 GM INH SCH ×2 (10:47→20:28)
[2018-12-06] MEDS: POTASSIUM CHLORIDE 10 MEQ TABLET PO SCH ×2 (10:47→20:26)
[2018-12-06] MEDS ORDERED: FAMOTIDINE 20 MG/2 ML VIAL IV ONE ×2 (12:47→13:11)
[2018-12-06] MEDS ORDERED: ONDANSETRON 4 MG/2 ML VIAL ONE (12:47)
[2018-12-06] MEDS ORDERED: SCOPOLAMINE 1.5 MG PATCH TRANSDERM ONE ×2 (12:53→12:56)
[2018-12-06] MEDS ORDERED: DEXAMETHASONE INJ 10 MG in SODIUM CHLORIDE 0.9% 50 ML IV ONE (13:12)
[2018-12-06] MEDS ORDERED: ONDANSETRON 4 MG/2 ML VIAL IV ONE (13:12)
[2018-12-06] MEDS ORDERED: ONDANSETRON 4 MG/2 ML VIAL IV PRN (14:45)
[2018-12-06] MEDS ORDERED: HYDROmorphone 2 MG/1 ML VIAL IV PRN (14:45)
[2018-12-06] MEDS ORDERED: KETOROLAC 30 MG/1 ML VIAL IV ONE (14:46)
[2018-12-06] MEDS ORDERED: KETOROLAC 30 MG/1 ML VIAL ONE (14:48)
[2018-12-06] MEDS ORDERED: MIDAZOLAM 2 MG/2 ML VIAL ONE (14:54)
[2018-12-06] MEDS ORDERED: SEVOFLURANE 1 UNIT/15 MINUTE INH ONE (14:54)
[2018-12-06] MEDS ORDERED: PROPOFOL 200 MG/20 ML VIAL IV ONE (14:54)
[2018-12-06] MEDS ORDERED: PHENYLEPHRINE 1 MG/10 ML SYRINGE IV ONE (14:55)
[2018-12-06] MEDS ORDERED: ONDANSETRON 4 MG TABLET PO PRN (15:25)
[2018-12-06] MEDS: FLUCONAZOLE 200 MG TABLET PO SCH (15:41)
[2018-12-06] MEDS: POLYETHYLENE GLYCOL POWDER 17 GM PACK PO SCH (15:41)
[2018-12-06] MEDS: OXYBUTYNIN 5 MG TABLET PO PRN ×2 (15:41→20:26)
[2018-12-06] MEDS: MULTIVITAMIN (PRENATAL) TABLET PO SCH (15:41)
[2018-12-06] MEDS: NICOTINE 14 MG/24 HR PATCH TRANSDERM SCH (15:42)
[2018-12-06] MEDS: PROMETHAZINE INJ 12.5 MG in SODIUM CHLORIDE 0.9% 50 ML IV PRN ×2 (18:01→23:14)
[2018-12-06] MEDS: MAGNESIUM HYDROXIDE SUSP 30 ML UDCUP PO PRN (20:26)
[2018-12-06] MEDS: MONTELUKAST 10 MG TABLET PO SCH (20:26)
[2018-12-06] MEDS: LEVOFLOXACIN INJ 500 MG in PREMIX 1 EACH IV SCH (20:27)
[2018-12-07] MEDS: HYDROmorphone 2 MG/1 ML VIAL IV PRN ×3 (02:18→08:50)
[2018-12-07] MEDS: ONDANSETRON 4 MG/2 ML VIAL IV PRN ×2 (04:06→08:05)
[2018-12-07] MEDS: PROMETHAZINE INJ 12.5 MG in SODIUM CHLORIDE 0.9% 50 ML IV PRN (05:43)
[2018-12-07 07:38] VITALS: BP 115/61
[2018-12-07] MEDS: MULTIVITAMIN (PRENATAL) TABLET PO SCH (08:00)
[2018-12-07] MEDS: METOCLOPRAMIDE 5 MG TABLET PO SCH (08:00)
[2018-12-07] MEDS: DOCUSATE SODIUM 100 MG CAPSULE PO SCH (08:01)
[2018-12-07] MEDS: POLYETHYLENE GLYCOL POWDER 17 GM PACK PO SCH (08:01)
[2018-12-07] MEDS: POTASSIUM CHLORIDE 10 MEQ TABLET PO SCH (08:01)
[2018-12-07] MEDS: NICOTINE 14 MG/24 HR PATCH TRANSDERM SCH (08:02)
[2018-12-07] MEDS: MAGNESIUM HYDROXIDE SUSP 30 ML UDCUP PO PRN (08:05)
[2018-12-07] MEDS: FLUCONAZOLE 200 MG TABLET PO SCH (08:05)
[2018-12-07] MEDS: SODIUM CHLORIDE 0.9% 1,000 ML IV SCH (08:08)
[2018-12-07] MEDS: BUDESONIDE/FORMOTEROL 160-4.5 INHALER 6 GM INH SCH (08:09)
[2018-12-10 14:26] LABS: Stone Source Kidney
== END 2018-12-07 12:14 | disposition home or self-care (01) | DRG 661 ==
LOC: N.ED 17:48 → N.EDINP 17:48 → N.5E 22:15
PROVIDERS: ADMIT Internal Medicine; ATTEND Internal Medicine

== ENCOUNTER 2021-08-08 14:09 | Inpatient (IN) ==
[2021-08-08] MEDS ORDERED: CALCIUM CARBONATE CHEW 500 MG TABLET PO PRN (15:47)
[2021-08-08] MEDS ORDERED: SIMETHICONE CHEW 125 MG TABLET PO PRN (15:47)
[2021-08-08] MEDS ORDERED: diphenhydrAMINE 50 MG/1 ML VIAL IV PRN (15:47)
[2021-08-08] MEDS: ONDANSETRON 4 MG/2 ML VIAL IV PRN ×2 (16:56→20:39)
[2021-08-08] MEDS: HYDROmorphone 2 MG/1 ML VIAL IV PRN ×3 (16:57→22:53)
[2021-08-08] MEDS: SODIUM CHLORIDE 0.9% 1,000 ML IV SCH (16:57)
[2021-08-08] MEDS ORDERED: BUDESONIDE/FORMOTEROL 160-4.5 INHALER 6 GM INH PRN (17:02)
[2021-08-08 17:20] LABS: Basophils % 0.3 % (0.0-0.8); Eosinophils # 0.1 10*3/uL (0.0-0.87); Eosinophils % 0.5 % (0.00-10.9); Hematocrit 35.6 VOL% (35.7-47.0); Hemoglobin 11.8 GM/DL (12.0-16.0); Immature Granulocytes % 0.4 %; Immature Granulocytes Absolute 0.05 #; Lymphocytes # 0.9 10*3/uL (1.4-4.0); Lymphocytes % 7.3 % (21.3-54.2); Mean Corpuscular HGB Conc 33.1 GM/DL (32-36); Mean Corpuscular Volume 95.4 FL (87-102); Mean Platelet Volume 9.5 FL (9.6-12.0); Monocytes % 8.4 % (1.7-12.7); Neutrophils % 83.1 % (38.7-73.9); Platelet Count 253 T/CUMM (130-400); Red Blood Count 3.73 MC/CUMM (3.8-5.5); Red Cell Distribution Width 13.1 % (9.3-17.3); White Blood Count 11.8 T/CUMM (4-12)
[2021-08-08] MEDS ORDERED: ALBUTEROL 2.5 MG/3 ML NEB RESP TX PRN (17:25)
[2021-08-08 18:02] LABS: Calcium 8.8 MG/DL (8.5-10.1); Osmolality,Calculated 270.2 MOS/KG (273-304); Potassium 3.7 MMOL/L (3.5-5.1)
[2021-08-08] MEDS: PROMETHAZINE 25 MG/1 ML VIAL IM PRN ×2 (18:25→22:55)
[2021-08-08] MEDS: oxyCODONE/ACETAMINOPHEN 5-325 MG TABLET PO PRN (18:26)
[2021-08-08] MEDS: TAMSULOSIN 0.4 MG CAPSULE PO SCH (19:51)
[2021-08-08] MEDS: DOCUSATE SODIUM 100 MG CAPSULE PO PRN (20:33)
[2021-08-08] MEDS: NORETHINDRONE 0.35 MG PO SCH (20:39)
[2021-08-08] MEDS: ACETAMINOPHEN 325 MG TABLET PO PRN (20:39)
[2021-08-08] MEDS: POTASSIUM CHLORIDE 10 MEQ TABLET PO SCH (20:39)
[2021-08-08] MEDS: MONTELUKAST 10 MG TABLET PO SCH (20:39)
[2021-08-08] MEDS: ERTAPENEM 1,000 MG in SODIUM CHLORIDE 0.9% 100 ML IV SCH (20:42)
[2021-08-09] MEDS: ONDANSETRON 4 MG/2 ML VIAL IV PRN ×2 (00:30→14:29)
[2021-08-09] MEDS: oxyCODONE/ACETAMINOPHEN 5-325 MG TABLET PO PRN ×4 (00:31→23:18)
[2021-08-09] MEDS: SODIUM CHLORIDE 0.9% 1,000 ML IV SCH ×3 (00:33→21:58)
[2021-08-09] MEDS: ACETAMINOPHEN 325 MG TABLET PO PRN ×3 (00:36→20:42)
[2021-08-09] MEDS: PROMETHAZINE 25 MG/1 ML VIAL IM PRN ×3 (04:35→20:52)
[2021-08-09] MEDS ORDERED: cefTRIAXone 1,000 MG in SODIUM CHLORIDE 0.9% 100 ML IV ONE (06:00)
[2021-08-09] MEDS: HYDROmorphone 2 MG/1 ML VIAL IV PRN ×4 (06:29→21:54)
[2021-08-09 06:54] LABS: Basophils % 0.4 % (0.0-0.8); Eosinophils # 0.2 10*3/uL (0.0-0.87); Hematocrit 34.1 VOL% (35.7-47.0); Hemoglobin 11.4 GM/DL (12.0-16.0); Immature Granulocytes % 0.4 %; Immature Granulocytes Absolute 0.03 #; Lymphocytes # 0.9 10*3/uL (1.4-4.0); Lymphocytes % 11.3 % (21.3-54.2); Mean Corpuscular HGB Conc 33.4 GM/DL (32-36); Mean Corpuscular Volume 96.3 FL (87-102); Mean Platelet Volume 9.5 FL (9.6-12.0); Monocytes % 12.6 % (1.7-12.7); Neutrophils % 73.3 % (38.7-73.9); Platelet Count 216 T/CUMM (130-400); Red Blood Count 3.54 MC/CUMM (3.8-5.5); Red Cell Distribution Width 12.9 % (9.3-17.3); White Blood Count 8.2 T/CUMM (4-12)
[2021-08-09 07:13] LABS: Calcium 8.1 MG/DL (8.5-10.1); Osmolality,Calculated 275.8 MOS/KG (273-304); Potassium 4.1 MMOL/L (3.5-5.1)
[2021-08-09] MEDS ORDERED: hydroCHLOROthiazide 12.5 MG CAPSULE PO SCH (09:00)
[2021-08-09] MEDS ORDERED: fentaNYL 100 MCG/2 ML VIAL ONE (09:16)
[2021-08-09] MEDS ORDERED: MIDAZOLAM 2 MG/2 ML VIAL ONE (09:16)
[2021-08-09] MEDS ORDERED: SCOPOLAMINE 1.5 MG PATCH TRANSDERM ONE ×2 (09:19→09:43)
[2021-08-09] MEDS ORDERED: HYDROmorphone 2 MG/1 ML VIAL IV ONE (09:42)
[2021-08-09] MEDS: FAMOTIDINE 20 MG TABLET PO SCH (14:35)
[2021-08-09] MEDS ORDERED: BISACODYL 10 MG SUPP RECTAL PRN (14:36)
[2021-08-09] MEDS: DOCUSATE SODIUM 100 MG CAPSULE PO PRN ×2 (14:36→20:43)
[2021-08-09] MEDS: POTASSIUM CHLORIDE 10 MEQ TABLET PO SCH ×2 (14:36→20:43)
[2021-08-09] MEDS: TAMSULOSIN 0.4 MG CAPSULE PO SCH (14:36)
[2021-08-09] MEDS: CETIRIZINE 10 MG TABLET PO SCH (14:36)
[2021-08-09] MEDS ORDERED: LACTULOSE 20 GM/30 ML UDCUP PO PRN (14:38)
[2021-08-09] MEDS ORDERED: MAGNESIUM SULF RIDER 4 GM/100 ML PREMIX IV PRN (14:40)
[2021-08-09] MEDS ORDERED: MAGNESIUM SULF RIDER 2 GM/50 ML PREMIX IV PRN (14:40)
[2021-08-09] MEDS: LISDEXAMFETAMINE 70 MG PO SCH (14:59)
[2021-08-09] MEDS ORDERED: MELATONIN 3 MG TABLET PO PRN (15:42)
[2021-08-09] MEDS ORDERED: SODIUM CHLORIDE 0.9% 1,000 ML IV ONE (15:42)
[2021-08-09] MEDS ORDERED: GENTAMICIN INJ 160 MG in SODIUM CHLORIDE 0.9% 100 ML IV ONE (16:00)
[2021-08-09] MEDS: POLYETHYLENE GLYCOL POWDER 17 GM PACK PO SCH (16:33)
[2021-08-09] MEDS: IBUPROFEN 400 MG TABLET PO PRN (18:22)
[2021-08-09] MEDS: MONTELUKAST 10 MG TABLET PO SCH (20:43)
[2021-08-09] MEDS: ERTAPENEM 1,000 MG in SODIUM CHLORIDE 0.9% 100 ML IV SCH (20:53)
[2021-08-09] MEDS: KETOROLAC 15 MG/1 ML VIAL IV PRN (20:53)
[2021-08-09] MEDS: NORETHINDRONE 0.35 MG PO SCH (23:43)
[2021-08-10] MEDS: HYDROmorphone 2 MG/1 ML VIAL IV PRN ×6 (00:56→23:00)
[2021-08-10] MEDS: PROMETHAZINE 25 MG/1 ML VIAL IM PRN ×5 (00:57→21:21)
[2021-08-10] MEDS: ACETAMINOPHEN 325 MG TABLET PO PRN (04:50)
[2021-08-10] MEDS: KETOROLAC 15 MG/1 ML VIAL IV PRN (04:51)
[2021-08-10 05:50] LABS: Basophils % 0.5 % (0.0-0.8); Eosinophils # 0.3 10*3/uL (0.0-0.87); Eosinophils % 3.1 % (0.00-10.9); Hematocrit 30.5 VOL% (35.7-47.0); Hemoglobin 9.8 GM/DL (12.0-16.0); Immature Granulocytes % 0.4 %; Immature Granulocytes Absolute 0.03 #; Lymphocytes # 1.1 10*3/uL (1.4-4.0); Lymphocytes % 13.2 % (21.3-54.2); Mean Corpuscular HGB Conc 32.1 GM/DL (32-36); Mean Corpuscular Volume 97.4 FL (87-102); Mean Platelet Volume 9.5 FL (9.6-12.0); Monocytes % 14.6 % (1.7-12.7); Neutrophils % 68.2 % (38.7-73.9); Platelet Count 203 T/CUMM (130-400); Red Blood Count 3.13 MC/CUMM (3.8-5.5); Red Cell Distribution Width 13.1 % (9.3-17.3); White Blood Count 8.4 T/CUMM (4-12)
[2021-08-10 06:04] LABS: Calcium 7.6 MG/DL (8.5-10.1); Osmolality,Calculated 273.7 MOS/KG (273-304)
[2021-08-10] MEDS: oxyCODONE/ACETAMINOPHEN 5-325 MG TABLET PO PRN ×3 (06:57→21:21)
[2021-08-10] MEDS ORDERED: MAGNESIUM SULF RIDER 2 GM/50 ML PREMIX IV ONE (07:41)
[2021-08-10] MEDS: SODIUM CHLORIDE 0.9% 1,000 ML IV SCH ×4 (08:44→20:01)
[2021-08-10] MEDS: DOCUSATE SODIUM 100 MG CAPSULE PO PRN (09:03)
[2021-08-10] MEDS: LISDEXAMFETAMINE 70 MG PO SCH (09:04)
[2021-08-10] MEDS: FAMOTIDINE 20 MG TABLET PO SCH (09:04)
[2021-08-10] MEDS: CETIRIZINE 10 MG TABLET PO SCH (09:04)
[2021-08-10] MEDS: POLYETHYLENE GLYCOL POWDER 17 GM PACK PO SCH (09:04)
[2021-08-10] MEDS: TAMSULOSIN 0.4 MG CAPSULE PO SCH (09:04)
[2021-08-10] MEDS: POTASSIUM CHLORIDE 10 MEQ TABLET PO SCH ×2 (09:04→20:01)
[2021-08-10] MEDS ORDERED: NALOXONE 0.4 MG/ML VIAL IV PRN (09:31)
[2021-08-10] MEDS ORDERED: HYDROmorphone 2 MG/1 ML VIAL IV PRN (09:31)
[2021-08-10] MEDS ORDERED: SODIUM CHLORIDE 0.9% 500 ML IV ONE (10:03)
[2021-08-10] MEDS ORDERED: SODIUM CHLORIDE 0.9% 250 ML IV ONE (12:28)
[2021-08-10] MEDS: ONDANSETRON 4 MG/2 ML VIAL IV PRN ×2 (12:58→19:48)
[2021-08-10] MEDS ORDERED: KETOROLAC 30 MG/1 ML VIAL IV ONE (15:27)
[2021-08-10] MEDS: MONTELUKAST 10 MG TABLET PO SCH (20:01)
[2021-08-10] MEDS: ZALEPLON 5 MG CAPSULE PO PRN (20:01)
[2021-08-10] MEDS: NORETHINDRONE 0.35 MG PO SCH (20:01)
[2021-08-10] MEDS: ERTAPENEM 1,000 MG in SODIUM CHLORIDE 0.9% 100 ML IV SCH (21:21)
[2021-08-10] MEDS: IBUPROFEN 400 MG TABLET PO PRN (23:07)
[2021-08-11] MEDS: HYDROmorphone 2 MG/1 ML VIAL IV PRN ×6 (02:56→23:56)
[2021-08-11] MEDS: PROMETHAZINE 25 MG/1 ML VIAL IM PRN ×5 (02:57→23:56)
[2021-08-11] MEDS: ACETAMINOPHEN 325 MG TABLET PO PRN (05:11)
[2021-08-11] MEDS: SODIUM CHLORIDE 0.9% 1,000 ML IV SCH ×5 (05:21→23:58)
[2021-08-11 05:29] LABS: Basophils % 0.2 % (0.0-0.8); Eosinophils # 0.3 10*3/uL (0.0-0.87); Hematocrit 30.2 VOL% (35.7-47.0); Immature Granulocytes % 0.2 %; Immature Granulocytes Absolute 0.02 #; Lymphocytes % 11.9 % (21.3-54.2); Mean Corpuscular HGB Conc 33.1 GM/DL (32-36); Mean Corpuscular Volume 98.7 FL (87-102); Mean Platelet Volume 9.8 FL (9.6-12.0); Monocytes % 10.3 % (1.7-12.7); Neutrophils % 74.4 % (38.7-73.9); Platelet Count 231 T/CUMM (130-400); Red Blood Count 3.06 MC/CUMM (3.8-5.5); Red Cell Distribution Width 12.9 % (9.3-17.3); White Blood Count 8.6 T/CUMM (4-12)
[2021-08-11 05:40] LABS: Calcium 7.7 MG/DL (8.5-10.1); Osmolality,Calculated 276.4 MOS/KG (273-304); Potassium 4.1 MMOL/L (3.5-5.1)
[2021-08-11] MEDS: ONDANSETRON 4 MG/2 ML VIAL IV PRN ×3 (06:14→15:20)
[2021-08-11] MEDS ORDERED: BISACODYL 10 MG SUPP RECTAL ONE (07:45)
[2021-08-11] MEDS: POLYETHYLENE GLYCOL POWDER 17 GM PACK PO SCH (09:20)
[2021-08-11] MEDS: oxyCODONE/ACETAMINOPHEN 5-325 MG TABLET PO PRN ×3 (09:21→21:23)
[2021-08-11] MEDS: FAMOTIDINE 20 MG TABLET PO SCH (09:21)
[2021-08-11] MEDS: DOCUSATE SODIUM 100 MG CAPSULE PO SCH ×2 (09:21→20:16)
[2021-08-11] MEDS: TAMSULOSIN 0.4 MG CAPSULE PO SCH (09:21)
[2021-08-11] MEDS: POTASSIUM CHLORIDE 10 MEQ TABLET PO SCH ×2 (09:22→20:16)
[2021-08-11] MEDS: CETIRIZINE 10 MG TABLET PO SCH (09:22)
[2021-08-11] MEDS ORDERED: MAGNESIUM SULF RIDER 2 GM/50 ML PREMIX IV ONE (10:01)
[2021-08-11] MEDS: LISDEXAMFETAMINE 70 MG PO SCH (10:18)
[2021-08-11] MEDS: ERTAPENEM 1,000 MG in SODIUM CHLORIDE 0.9% 100 ML IV SCH (20:16)
[2021-08-11] MEDS: ZALEPLON 5 MG CAPSULE PO PRN (20:16)
[2021-08-11] MEDS: MONTELUKAST 10 MG TABLET PO SCH (20:16)
[2021-08-11] MEDS: NORETHINDRONE 0.35 MG PO SCH (21:21)
[2021-08-12] MEDS: ONDANSETRON 4 MG/2 ML VIAL IV PRN ×2 (03:46→19:55)
[2021-08-12] MEDS: HYDROmorphone 2 MG/1 ML VIAL IV PRN ×4 (03:47→19:56)
[2021-08-12 05:53] LABS: Basophils % 0.4 % (0.0-0.8); Eosinophils # 0.2 10*3/uL (0.0-0.87); Hematocrit 31.6 VOL% (35.7-47.0); Hemoglobin 10.3 GM/DL (12.0-16.0); Immature Granulocytes % 0.2 %; Immature Granulocytes Absolute 0.01 #; Lymphocytes % 17.9 % (21.3-54.2); Mean Corpuscular HGB Conc 32.6 GM/DL (32-36); Mean Corpuscular Volume 97.5 FL (87-102); Mean Platelet Volume 9.6 FL (9.6-12.0); Monocytes % 8.7 % (1.7-12.7); Neutrophils % 68.8 % (38.7-73.9); Platelet Count 263 T/CUMM (130-400); Red Blood Count 3.24 MC/CUMM (3.8-5.5); Red Cell Distribution Width 12.7 % (9.3-17.3); White Blood Count 5.5 T/CUMM (4-12)
[2021-08-12 06:18] LABS: Calcium 8.1 MG/DL (8.5-10.1); Osmolality,Calculated 273.5 MOS/KG (273-304)
[2021-08-12] MEDS: POTASSIUM CHLORIDE 10 MEQ TABLET PO SCH ×2 (09:09→20:02)
[2021-08-12] MEDS: CETIRIZINE 10 MG TABLET PO SCH (09:09)
[2021-08-12] MEDS: POLYETHYLENE GLYCOL POWDER 17 GM PACK PO SCH (09:09)
[2021-08-12] MEDS: TAMSULOSIN 0.4 MG CAPSULE PO SCH (09:09)
[2021-08-12] MEDS: FAMOTIDINE 20 MG TABLET PO SCH (09:09)
[2021-08-12] MEDS: DOCUSATE SODIUM 100 MG CAPSULE PO SCH ×2 (09:09→20:03)
[2021-08-12] MEDS: LISDEXAMFETAMINE 70 MG PO SCH (09:09)
[2021-08-12] MEDS: SODIUM CHLORIDE 0.9% 1,000 ML IV SCH ×2 (09:22→13:10)
[2021-08-12 11:08] LABS: % Iron Saturation 20.5 % (18-50)
[2021-08-12 11:52] LABS: Folate 17.22 NG/ML (5.38-24.0)
[2021-08-12] MEDS ORDERED: MAGNESIUM SULF RIDER 2 GM/50 ML PREMIX IV ONE (13:00)
[2021-08-12] MEDS: oxyCODONE/ACETAMINOPHEN 5-325 MG TABLET PO PRN (13:24)
[2021-08-12] MEDS ORDERED: MAGNESIUM HYDROXIDE SUSP 30 ML UDCUP PO PRN (16:52)
[2021-08-12] MEDS ORDERED: MAGNESIUM HYDROXIDE SUSP 30 ML UDCUP PO ONE (16:52)
[2021-08-12] MEDS: MONTELUKAST 10 MG TABLET PO SCH (20:03)
[2021-08-12] MEDS: ERTAPENEM 1,000 MG in SODIUM CHLORIDE 0.9% 100 ML IV SCH (20:03)
[2021-08-12] MEDS: NORETHINDRONE 0.35 MG PO SCH (20:08)
[2021-08-12] MEDS: ZALEPLON 5 MG CAPSULE PO PRN (21:54)
[2021-08-12] MEDS: PROMETHAZINE 25 MG/1 ML VIAL IM PRN (21:54)
[2021-08-12] MEDS: KETOROLAC 15 MG/1 ML VIAL IV PRN (21:54)
[2021-08-13] MEDS: HYDROmorphone 2 MG/1 ML VIAL IV PRN ×3 (00:18→11:02)
[2021-08-13] MEDS: oxyCODONE/ACETAMINOPHEN 5-325 MG TABLET PO PRN ×2 (03:30→08:20)
[2021-08-13 05:39] LABS: Basophils % 0.2 % (0.0-0.8); Eosinophils # 0.3 10*3/uL (0.0-0.87); Eosinophils % 2.9 % (0.00-10.9); Hematocrit 34.8 VOL% (35.7-47.0); Hemoglobin 11.2 GM/DL (12.0-16.0); Immature Granulocytes % 0.5 %; Immature Granulocytes Absolute 0.04 #; Lymphocytes # 0.5 10*3/uL (1.4-4.0); Lymphocytes % 5.5 % (21.3-54.2); Mean Corpuscular HGB Conc 32.2 GM/DL (32-36); Mean Corpuscular Volume 95.9 FL (87-102); Mean Platelet Volume 9.2 FL (9.6-12.0); Monocytes % 8.1 % (1.7-12.7); Neutrophils % 82.8 % (38.7-73.9); Platelet Count 273 T/CUMM (130-400); Red Blood Count 3.63 MC/CUMM (3.8-5.5); Red Cell Distribution Width 12.6 % (9.3-17.3); White Blood Count 8.5 T/CUMM (4-12)
[2021-08-13 06:03] LABS: Calcium 8.2 MG/DL (8.5-10.1); Osmolality,Calculated 269.8 MOS/KG (273-304); Potassium 4.3 MMOL/L (3.5-5.1)
[2021-08-13] MEDS ORDERED: cefTRIAXone 1,000 MG in SODIUM CHLORIDE 0.9% 100 ML IV ONE (08:00)
[2021-08-13] MEDS: ONDANSETRON 4 MG/2 ML VIAL IV PRN (08:17)
[2021-08-13] MEDS: TAMSULOSIN 0.4 MG CAPSULE PO SCH (08:20)
[2021-08-13] MEDS: POLYETHYLENE GLYCOL POWDER 17 GM PACK PO SCH (08:20)
[2021-08-13] MEDS: FAMOTIDINE 20 MG TABLET PO SCH (08:20)
[2021-08-13] MEDS: CETIRIZINE 10 MG TABLET PO SCH (08:20)
[2021-08-13] MEDS: DOCUSATE SODIUM 100 MG CAPSULE PO SCH (08:20)
[2021-08-13] MEDS: POTASSIUM CHLORIDE 10 MEQ TABLET PO SCH (08:20)
[2021-08-13] MEDS ORDERED: FERROUS SULFATE 325 MG TABLET PO SCH (09:00)
[2021-08-13] MEDS: LISDEXAMFETAMINE 70 MG PO SCH (09:04)
[2021-08-13] MEDS: PROMETHAZINE 25 MG/1 ML VIAL IM PRN (11:05)
[2021-08-13] MEDS: SODIUM CHLORIDE 0.9% 1,000 ML IV SCH (13:58)
[2021-08-13 15:38] VITALS: BP 99/48
== END 2021-08-13 16:51 | disposition home or self-care (01) | DRG 854 ==
LOC: N.ADMINP → N.5E 15:31
PROVIDERS: ADMIT Surgery; ATTEND Surgery

== ENCOUNTER 2022-06-10 14:16 | Inpatient (IN) ==
[2022-06-10] MEDS ORDERED: SODIUM CHLORIDE 0.9% 1,000 ML IV STA (19:37)
[2022-06-10] MEDS ORDERED: KETOROLAC 30 MG/1 ML VIAL IV STA (19:37)
[2022-06-10] MEDS ORDERED: ONDANSETRON 4 MG/2 ML VIAL IV STA (19:37)
[2022-06-10] MEDS ORDERED: HYDROmorphone 1 MG/1 ML SYRINGE IV STA (20:08)
[2022-06-10] MEDS ORDERED: PIPERACILLIN/TAZOBACTAM 3,375 MG in SODIUM CHLORIDE 0.9% 100 ML IV STA (20:09)
[2022-06-10 20:24] LABS: Basophils % 0.6 % (0.0-0.8); Eosinophils # 0.2 10*3/uL (0.0-0.87); Eosinophils % 2.6 % (0.00-10.9); Hemoglobin 12.8 GM/DL (12.0-16.0); Immature Granulocytes % 0.1 %; Immature Granulocytes Absolute 0.01 #; Lymphocytes # 1.8 10*3/uL (1.4-4.0); Lymphocytes % 26.9 % (21.3-54.2); Mean Corpuscular HGB Conc 32.8 GM/DL (32-36); Mean Corpuscular Volume 95.4 FL (87-102); Mean Platelet Volume 9.6 FL (9.6-12.0); Monocytes # 0.7 10*3/uL (0.11-0.8); Monocytes % 10.8 % (1.7-12.7); Platelet Count 265 T/CUMM (130-400); Red Blood Count 4.09 MC/CUMM (3.8-5.5); Red Cell Distribution Width 13.3 % (9.3-17.3); White Blood Count 6.9 T/CUMM (4-12)
[2022-06-10 20:34] LABS: Alanine Aminotransferase 19 U/L (13-56); Alkaline Phosphatase 55 U/L (45-117); Aspartate Amino Transferase 11 U/L (0-37); Bilirubin,Total < 0.39 MG/DL (0.20-1.00); Blood Urea Nitrogen 22 MG/DL (7-18); Calcium 8.7 MG/DL (8.5-10.1); Carbon Dioxide 27 MMOL/L (21-32); Chloride 104 MMOL/L (98-107); Glucose 91 MG/DL (74-106); Potassium 3.4 MMOL/L (3.5-5.1); Sodium 136 MMOL/L (136-145); Total Protein 6.8 G/DL (6.4-8.2)
[2022-06-10 20:39] LABS: Bacteria,Urine Occasional /HPF (Few); Bilirubin,Urine Negative (Negative); Blood, Urine Trace mg/dL (Negative); Glucose,Urine (UA) Negative (Negative); Ketones,Urine Negative (Negative); Nitrite,Urine Negative (Negative); Protein,Urine Negative (Negative); RBC,Urine 1 /HPF (0-4); Squamous Epithelial Cell,Urine Occasional /HPF (0-10); Urine Appearance Clear (Clear); Urine Color Yellow (Yellow); Urine Specific Gravity 1.015 (1.001-1.035); Urine Urobilinogen 0.2 eU/dL (<2.0)
[2022-06-10] MEDS ORDERED: PROMETHAZINE INJ 25 MG in SODIUM CHLORIDE 0.9% 50 ML IV STA (22:00)
[2022-06-10] MEDS ORDERED: PROMETHAZINE 25 MG/1 ML VIAL IM STA (22:11)
[2022-06-10] MEDS ORDERED: ACETAMINOPHEN 325 MG TABLET PO PRN (22:26)
[2022-06-11] MEDS: HYDROmorphone 1 MG/1 ML SYRINGE IV PRN ×6 (01:20→21:00)
[2022-06-11] MEDS: ONDANSETRON 4 MG/2 ML VIAL IV PRN ×3 (02:10→10:42)
[2022-06-11] MEDS ORDERED: POTASSIUM CHLORIDE 20 MEQ TABLET PO ONE (06:53)
[2022-06-11] MEDS: DEXT 5% NACL 0.45% KCL 20 MEQ 20 MEQ/1,000 ML BAG IV SCH ×2 (08:04→17:31)
[2022-06-11] MEDS: DOCUSATE SODIUM 100 MG CAPSULE PO SCH (10:41)
[2022-06-11] MEDS: KETOROLAC 15 MG/1 ML VIAL IV SCH ×3 (10:57→23:35)
[2022-06-11] MEDS ORDERED: oxyCODONE/ACETAMINOPHEN 5-325 MG TABLET PO PRN (14:13)
[2022-06-11] MEDS ORDERED: diphenhydrAMINE 50 MG/1 ML VIAL IV PRN (14:14)
[2022-06-11] MEDS: PROMETHAZINE 25 MG/1 ML VIAL IM PRN ×2 (14:45→19:14)
[2022-06-12] MEDS: HYDROmorphone 1 MG/1 ML SYRINGE IV PRN ×7 (00:07→21:52)
[2022-06-12] MEDS: PROMETHAZINE 25 MG/1 ML VIAL IM PRN ×6 (00:07→23:36)
[2022-06-12] MEDS: DEXT 5% NACL 0.45% KCL 20 MEQ 20 MEQ/1,000 ML BAG IV SCH ×3 (00:09→17:45)
[2022-06-12] MEDS: KETOROLAC 15 MG/1 ML VIAL IV SCH ×4 (07:00→23:35)
[2022-06-12] MEDS ORDERED: cefTRIAXone 1,000 MG in SODIUM CHLORIDE 0.9% 100 ML IV ONE (07:27)
[2022-06-12] MEDS: DOCUSATE SODIUM 100 MG CAPSULE PO SCH ×2 (07:54→09:05)
[2022-06-12 08:37] LABS: Basophils % 0.4 % (0.0-0.8); Eosinophils # 0.3 10*3/uL (0.0-0.87); Eosinophils % 3.7 % (0.00-10.9); Hematocrit 35.7 VOL% (35.7-47.0); Hemoglobin 11.6 GM/DL (12.0-16.0); Immature Granulocytes % 0.1 %; Immature Granulocytes Absolute 0.01 #; Lymphocytes # 1.5 10*3/uL (1.4-4.0); Lymphocytes % 21.7 % (21.3-54.2); Mean Corpuscular HGB Conc 32.5 GM/DL (32-36); Mean Corpuscular Volume 96.7 FL (87-102); Mean Platelet Volume 9.3 FL (9.6-12.0); Monocytes # 0.8 10*3/uL (0.11-0.8); Monocytes % 11.8 % (1.7-12.7); Neutrophils % 62.3 % (38.7-73.9); Platelet Count 226 T/CUMM (130-400); Red Blood Count 3.69 MC/CUMM (3.8-5.5); Red Cell Distribution Width 12.9 % (9.3-17.3)
[2022-06-12 08:54] LABS: Calcium 7.9 MG/DL (8.5-10.1); Osmolality,Calculated 280.4 MOS/KG (273-304); Potassium 4.4 MMOL/L (3.5-5.1)
[2022-06-12] MEDS: cefTRIAXone 1,000 MG in SODIUM CHLORIDE 0.9% 100 ML IV SCH (09:04)
[2022-06-12] MEDS: POLYETHYLENE GLYCOL POWDER 17 GM PACK PO SCH (09:34)
[2022-06-13] MEDS: HYDROmorphone 1 MG/1 ML SYRINGE IV PRN ×6 (00:42→21:13)
[2022-06-13] MEDS: DEXT 5% NACL 0.45% KCL 20 MEQ 20 MEQ/1,000 ML BAG IV SCH ×3 (00:50→22:48)
[2022-06-13] MEDS: PROMETHAZINE 25 MG/1 ML VIAL IM PRN ×5 (03:50→21:13)
[2022-06-13] MEDS: KETOROLAC 15 MG/1 ML VIAL IV SCH ×3 (05:29→17:45)
[2022-06-13 05:41] LABS: Basophils % 0.7 % (0.0-0.8); Eosinophils # 0.3 10*3/uL (0.0-0.87); Eosinophils % 5.4 % (0.00-10.9); Hematocrit 34.3 VOL% (35.7-47.0); Hemoglobin 11.2 GM/DL (12.0-16.0); Immature Granulocytes % 0.2 %; Immature Granulocytes Absolute 0.01 #; Lymphocytes # 1.6 10*3/uL (1.4-4.0); Mean Corpuscular HGB Conc 32.7 GM/DL (32-36); Mean Platelet Volume 9.4 FL (9.6-12.0); Monocytes # 0.7 10*3/uL (0.11-0.8); Monocytes % 12.2 % (1.7-12.7); Neutrophils % 55.5 % (38.7-73.9); Platelet Count 225 T/CUMM (130-400); Red Blood Count 3.61 MC/CUMM (3.8-5.5); Red Cell Distribution Width 12.8 % (9.3-17.3)
[2022-06-13 06:23] LABS: Calcium 8.1 MG/DL (8.5-10.1); Osmolality,Calculated 283.1 MOS/KG (273-304); Potassium 4.5 MMOL/L (3.5-5.1)
[2022-06-13] MEDS: POLYETHYLENE GLYCOL POWDER 17 GM PACK PO SCH (10:08)
[2022-06-13] MEDS: DOCUSATE SODIUM 100 MG CAPSULE PO SCH (10:08)
[2022-06-13] MEDS: cefTRIAXone 1,000 MG in SODIUM CHLORIDE 0.9% 100 ML IV SCH (10:11)
[2022-06-13] MEDS ORDERED: propofoL 200 MG/20 ML VIAL IV ONE (14:08)
[2022-06-13] MEDS ORDERED: ONDANSETRON 4 MG/2 ML VIAL ONE (14:08)
[2022-06-13] MEDS ORDERED: fentaNYL 100 MCG/2 ML VIAL ONE (14:08)
[2022-06-13] MEDS ORDERED: LIDOCAINE 2% 5 ML VIAL ONE (14:08)
[2022-06-13] MEDS ORDERED: SEVOFLURANE 1 UNIT/15 MINUTE INH ONE ×4 (14:36→15:57)
[2022-06-13] MEDS ORDERED: PHENYLEPHRINE 1 MG/10 ML SYRINGE IV ONE ×2 (14:36→15:28)
[2022-06-13] MEDS ORDERED: DEXAMETHASONE 4 MG/1 ML VIAL ONE ×2 (15:20)
[2022-06-13 16:04] LABS: Urine Appearance Slightly Cloudy (Clear); Urine Color Dark Yellow (Yellow); Urine pH 5.5 (4.5-8.0)
[2022-06-13 16:05] LABS: Bilirubin,Urine Small mg/dL (Negative); Blood, Urine Large mg/dL (Negative); Glucose,Urine (UA) Negative (Negative); Ketones,Urine Negative (Negative); Nitrite,Urine Negative (Negative); Protein,Urine 30 mg/dL (Negative); Urine Urobilinogen 0.2 eU/dL (<2.0)
[2022-06-13 16:07] LABS: Mucus,Urine Occasional /LPF (Occasional); RBC,Urine 502 /HPF (0-4)
[2022-06-14] MEDS: HYDROmorphone 1 MG/1 ML SYRINGE IV PRN ×3 (00:18→08:15)
[2022-06-14] MEDS: KETOROLAC 15 MG/1 ML VIAL IV SCH ×3 (00:48→12:45)
[2022-06-14] MEDS: PROMETHAZINE 25 MG/1 ML VIAL IM PRN ×3 (01:14→10:00)
[2022-06-14] MEDS ORDERED: MAGNESIUM HYDROXIDE SUSP 30 ML UDCUP PO PRN (01:20)
[2022-06-14] MEDS: DEXT 5% NACL 0.45% KCL 20 MEQ 20 MEQ/1,000 ML BAG IV SCH ×2 (03:43→12:00)
[2022-06-14] MEDS: POLYETHYLENE GLYCOL POWDER 17 GM PACK PO SCH (10:00)
[2022-06-14] MEDS: DOCUSATE SODIUM 100 MG CAPSULE PO SCH (10:00)
[2022-06-14] MEDS: cefTRIAXone 1,000 MG in SODIUM CHLORIDE 0.9% 100 ML IV SCH (10:41)
[2022-06-14 11:47] VITALS: BP 97/56
[2022-06-19 18:31] LABS: Stone Source Kidney
== END 2022-06-14 13:50 | disposition home or self-care (01) | DRG 661 ==
LOC: N.ED 14:16 → N.EDINP 14:16 → N.2W 06-11 00:37 → N.5E 06-12 13:18
PROVIDERS: ADMIT Surgery; ATTEND Surgery